=== PATIENT | male | born 1965 | race Caucasian/White ===

== ENCOUNTER 2016-09-19 11:38 | Day surgery (SDC) | payer MEDICAID ==
[2016-09-19] MEDS ORDERED: NS 1,000 ML IV SCH (12:30)
[2016-09-19] MEDS ORDERED: FLUMAZENIL 0.5 MG/5 ML MDV IVP ONE (12:53)
[2016-09-19] MEDS ORDERED: fentaNYL 100 MCG/2 ML INJ ONE (12:53)
[2016-09-19] MEDS ORDERED: NALOXONE HCL 0.4 MG/ML INJ ONE (12:53)
[2016-09-19] MEDS ORDERED: MIDAZOLAM 2 MG/2 ML VIAL ONE (12:53)
[2016-09-19] MEDS ORDERED: BUPIVACAINE 0.5% 30 ML SDV ONE (15:45)
[2016-09-19] MEDS ORDERED: TRIAMCINOLONE ACETONIDE 200 MG/5 ML MDV IM ONE (15:45)
[2016-09-19] MEDS ORDERED: DEPO METHYLPREDNISOLONE 80 MG/ML SDV ONE (15:46)
[2016-09-19] MEDS ORDERED: IOPAMIDOL (ISOVUE-M 300) 15 ML VIAL IV ONE (15:46)
--- NOTE | 2016-09-21 09:11 | IR ---
Bilateral L5-S1 facet injection Bilateral L5 median nerve block INDICATION: Recurrent low back pain. Previous facet injection presumably helped the patient for 1 mon . Repeat injection requested at this time. Patient's history consists of low back pain that radiates along the posterior thigh to the distal francisca f. It is not yet at the feet. If I were to perform bilateral L4-L5, L5-S1 facet joint injections, in addition to bilateral L4 and L 5 median nerve blocks, that would be 8 injections total, significantly diluting the amount of steroid can be delivered in 1 place. Because of patient's pain distribution, and overall appearance of the f acets on MRI, I decided to perform L5-S1 level today alone. This will also serve as a diagnostic tool differentiating from L4-5. Informed consent: Obtained from the patient. Risks and benefits were discussed. Crosscutting Measure: Patient's current list of medications including all known prescriptions, over- the-counters, herbals, and vitamin/mineral/dietary supplements are reviewed. Medications' name, dosa ge, frequency, and route of administration are confirmed. The patient is a non-smoker. Prophylactic Antibiotic: Cefazolin was not ordered and administered for antimicrobial prophylaxis be cause it was not medically necessary. VTE Prophylaxis: There is not an order for VTE prophylaxis to be given within 24 hours of the proced ure end time. VTE prophylaxis was not given because it was not medically necessary. Technique: Patient is placed in prone position. A "timeout" procedure was performed to identify the correct patient and the correct procedure. 1% Xylocaine was used for local anesthetic. All elemen ts of maximal sterile barrier technique including cap, mask, sterile gown, sterile gloves, large ster ile sheet, hand hygiene, and 2% chlorhexidine for cutaneous antisepsis, followed. 22-gauge spinal needle is inserted into the facet joints at L5-S1 bilaterally, left side first, then right. This is followed by administration of 40 mg of Depo-Medrol and 2 mL 1% Xylocaine respectively into each facet joint. Next, a new 22-gauge spinal needle is inserted into the superior aspect of the pedicles bilaterally w here the medial branch nerve would reside. Contrast injection shows satisfactory tissue placement of the needle tip, followed by administration of 40 mg of Kenalog and 2 mL 1% Xylocaine at each side. With injection of the left side in particular, the patient reported positive reproduction of symptoms . Medication: 3 mg Versed, 150 mcg fentanyl, 1500 to 1537 hours. Fluoroscopy: 2.6 minutes, 4 images Impression: 1. Bilateral L5-S1 median nerve branch block performed. 2. Bilateral L5-S1 facet joint injection performed. 3. L4-5 injections are particularly not done today for reasons stated above. 4. If patient obtains inadequate steroid treatment or pain relief from this injection, we can always been the patient back in 2 to 3 weeks time targeting L4-5 median nerves and facets at that time.
== END 2016-09-19 16:30 | disposition home or self-care (01) ==
LOC: FIMAGING 11:38
PROVIDERS: ATTEND Neurological Surgery
PROC: 3E0T33Z Introduction of Anti-inflammatory into Peripheral Nerves and Plexi, Percutaneous Approach (ICD-10-PCS; 2016-09-19)
PROC: 3E0T3BZ Introduction of Anesthetic Agent into Peripheral Nerves and Plexi, Percutaneous Approach (ICD-10-PCS; 2016-09-19)
PROC: 3E0U33Z Introduction of Anti-inflammatory into Joints, Percutaneous Approach (ICD-10-PCS; principal; 2016-09-19 15:44)
PROC: 3E0U3NZ Introduction of Analgesics, Hypnotics, Sedatives into Joints, Percutaneous Approach (ICD-10-PCS; principal; 2016-09-19 15:44)
DX: M54.5 Low back pain (principal); M54.40 Lumbago with sciatica, unspecified side; F17.200 Nicotine dependence, unspecified, uncomplicated
CPT/HCPCS: J1020; J2250; J2310; J3010; J3301; Q9967